=== PATIENT | male | born 1970 | race Caucasian/White ===

== ENCOUNTER → 2018-12-04 | Outpatient (CLI) | payer OTHER ==
--- NOTE | 2018-12-04 15:05 | RAD ---
Right knee, 2 views, 12/04/2018: HISTORY: Previous injury, pain No fracture or dislocation is identified. No significant arthritic change is seen. The periarticular soft tissues are unremarkable. IMPRESSION: No significant right knee abnormality is detected. Electronically signed by: Hadley Davis MD (12/04/2018 3:03 PM) [facility]
--- NOTE | 2018-12-04 15:05 | RAD ---
Lumbar spine, 2 views, 12/04/2018: HISTORY: Back pain, old injury. There has been a previous posterior spinal fusion and instrumentation from L2 through L4. There are bilateral fixation rods and pedicle screws in place at all 3 levels. Mild superior endplate deformities at L2 and L3 and slight anterior wedging of L1 appear old. There are mild scattered spurs in the lumbar spine. There is moderate facet joint arthropathy in the lower lumbar spine. No recent fracture or subluxation is identified. An inferior vena cava filter is in place at the L2-3 level. IMPRESSION: 1. Old postsurgical and posttraumatic changes in the mid lumbar spine as described above. 2. Mild scattered degenerative changes. 3. No acute bony abnormality is detected. Electronically signed by: Hadley Davis MD (12/04/2018 3:02 PM) [facility]
== END | disposition home or self-care (01) ==
LOC: RAD 10:00
PROVIDERS: ATTEND Surgery
DX: M47.816 Spondylosis without myelopathy or radiculopathy, lumbar region (principal); M25.561 Pain in right knee; G89.29 Other chronic pain
CPT/HCPCS: 72100; 73560

== ENCOUNTER → 2019-01-25 | Outpatient (CLI) | payer OTHER ==
--- NOTE | 2019-01-25 13:32 | RAD ---
Right foot radiograph 01/25/2019 10:02 AM INDICATION: Right foot pain since 25 foot fall 2010. COMPARISON: None available. TECHNIQUE: 3 views of the right foot are provided. FINDINGS: There is no acute fracture or dislocation. Chronic remodeling of the calcaneus is identified with degenerative changes of the talocalcaneal joint. There is diffuse osteopenia. Joint spaces are maintained. Regional soft tissues are within normal limits. There is no soft tissue gas or osseous erosion. IMPRESSION: No acute fracture or dislocation. There is chronic remodeling of the calcaneus, likely secondary to remote trauma. Findings result in flattening of the plantar arch. Electronically signed by: Sania Platt MD (01/25/2019 1:29 PM) [id number]
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
== END | disposition home or self-care (01) ==
LOC: RAD 13:38
PROVIDERS: ATTEND Family Medicine
DX: M85.871 Other specified disorders of bone density and structure, right ankle and foot (principal)
CPT/HCPCS: 72080; 73630

== ENCOUNTER 2019-06-19 19:49 | Emergency (ER) | payer SELFPAY ==
[~2019-06-19] VITALS: Ht 172.7 cm; Wt 70.3 kg
[2019-06-19 20:37] VITALS: BP 103/62
[2019-06-19] MEDS ORDERED: silver sulfADIAZINE 1% CREAM 25GM TUBE. TP ONE (21:45)
[2019-06-19] MEDS ORDERED: MORPHINE SULFATE 10 MG/ML VIAL. IM ONE (21:45)
[2019-06-19] MEDS ORDERED: HYDR-3164 PO (21:48)
[2019-06-19] MEDS ORDERED: SILV20CR14 TP (21:48)
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
== END 2019-06-19 22:13 | disposition home or self-care (01) ==
LOC: ER 19:49
DX: T22.012A Burn of unspecified degree of left forearm, initial encounter (principal); V89.2XXA Person injured in unspecified motor-vehicle accident, traffic, initial encounter; Y93.89 Activity, other specified; Y92.488 Other paved roadways as the place of occurrence of the external cause; Y99.8 Other external cause status
CPT/HCPCS: 16020; 96372; 99284; J2270; 99283